=== PATIENT | female | born 1965 | race African-American/Black ===

== ENCOUNTER 2022-10-08 16:55 | Inpatient (IN) | payer MEDICAID, OTHER ==
[~2022-10-08] VITALS: Ht 170.2 cm; Wt 120.7 kg
[2022-10-08 17:38] LABS: BASOPHILS % 1.5 % (0.0-2.0); EOSINOPHILS % 1.7 % (0.0-5.0); HEMATOCRIT. 38.9 % (36.0-48.0); HEMOGLOBIN. 12.5 g/dL (12.0-16.0); MEAN CORPUSCULAR HEMOGLOBIN 30.9 pg (28.0-32.0); MEAN CORPUSCULAR VOLUME 95.9 fL (81.0-99.0); MEAN PLATELET VOLUME 8.8 fl (7.4-10.4); NEUTROPHILS % 69.8 % (40.0-76.0); PLATELET 214 x1000/uL (130-400); RED BLOOD CELL COUNT 4.05 mill/uL (4.2-5.4); RED CELL DISTRIBUTION WIDTH 16.3 % (11.6-14.6)
[2022-10-08 17:41] LABS: BG BASE EXCESS 3.1 mmol/L (-2.0-2.0); BG DEOXYHEMOGLOBIN 0.3 % (0.0-5.0); BG HCO3 ACT 30.1 mmol/L (22.0-26.0); BG METHEMOGLOBIN 0.5 % (0.0-1.5); BG OXYGEN SATURATION 99.7 % (92.0-98.5); BG OXYHEMOGLOBIN 97.2 % (94.0-97.0); BG PCO2 56.8 mmHg (35.0-45.0); BG PH 7.342 (7.350-7.450); BG PO2 433.2 mmHg (75.0-100.0); BG SAMPLE SITE RIGHT RADIAL; BG TOTAL HEMOGLOBIN 13.2 g/dL (12.0-18.0); BG VENT MODE MASK - BIPAP
[2022-10-08 17:45] LABS: CHLORIDE 106 mEq/L (98-107)
[2022-10-08] MEDS ORDERED: ASPIRIN 81MG TABLET PO ONE (17:45)
[2022-10-08] MEDS ORDERED: FUROSEMIDE 40MG/4ML VIAL IV ONE (17:45)
[2022-10-08] MEDS ORDERED: NITROGLYCERIN OINT 1GM/INCH UDPKT TD ONE (17:45)
[2022-10-08] MEDS ORDERED: NITROGLYCERIN 50MG PREMIX 250 ML IV ONE (19:15)
[2022-10-08] MEDS ORDERED: FUROSEMIDE 40MG/4ML VIAL IVP ONE (19:15)
[2022-10-08] MEDS: NITROGLYCERIN 0.4MG TABLET SL SL PRN ×2 (19:16→19:25)
[2022-10-08] MEDS ORDERED: FUROSEMIDE 40MG/4ML VIAL IV SCH (22:15)
[2022-10-08] MEDS: GUAIFENESIN 600MG ER TABLET PO SCH (22:57)
[2022-10-08] MEDS: HYDRALAZINE 20MG/ML VIAL IV PRN (22:59)
[2022-10-08] MEDS ORDERED: LORAZEPAM 1MG TABLET PO PRN (23:45)
[2022-10-08] MEDS ORDERED: CLONIDINE 0.2MG TABLET PO PRN (23:45)
[2022-10-09] VITALS (28 sets, daily range): BP systolic 130–228; BP diastolic 59–106
[2022-10-09] MEDS: HYDRALAZINE 20MG/ML VIAL IV PRN (03:29)
[2022-10-09] MEDS ORDERED: LORAZEPAM 2MG/ML CPJ IV PRN (04:15)
[2022-10-09] MEDS: NITROGLYCERIN 50 MG PREMIX 250 ML IV PRN ×2 (04:48→20:34)
[2022-10-09] MEDS: GUAIFENESIN 600MG ER TABLET PO SCH ×2 (09:00→17:00)
[2022-10-09] MEDS: FUROSEMIDE 40MG/4ML VIAL IV SCH ×2 (09:00→20:33)
[2022-10-09] MEDS: AMLODIPINE 10MG TABLET PO SCH (10:15)
[2022-10-09] MEDS ORDERED: ONDANSETRON HCL 4MG/2ML INJ IV PRN (10:15)
[2022-10-09 10:48] LABS: BG BASE EXCESS 4.2 mmol/L (-2.0-2.0); BG CARBOXYHEMOGLOBIN 0.6 % (0.5-1.5); BG DEOXYHEMOGLOBIN 0.7 % (0.0-5.0); BG FRACTION INSPIRED OXYGEN 75; BG HCO3 ACT 38.8 mmol/L (22.0-26.0); BG METHEMOGLOBIN 0.7 % (0.0-1.5); BG OXYGEN SATURATION 99.3 % (92.0-98.5); BG PCO2 134.3 mmHg (35.0-45.0); BG PH 7.079 (7.350-7.450); BG PO2 213.1 mmHg (75.0-100.0); BG SAMPLE SITE RIGHT RADIAL; BG TOTAL HEMOGLOBIN 13.8 g/dL (12.0-18.0); BG TOTAL RESPIRATORY RATE 25 b/min; BG VENT MODE MASK - BIPAP
[2022-10-09] MEDS ORDERED: FLUMAZENIL 0.1 MG/ML 5ML VIAL IV NR (11:00)
[2022-10-09] MEDS: IPRATROPIUM/ALBUTEROL 0.5-3(2.5)MG/3ML NEB HHN SCH ×2 (11:41→17:11)
[2022-10-09 11:47] LABS: BG BASE EXCESS 3.9 mmol/L (-2.0-2.0); BG CARBOXYHEMOGLOBIN 0.8 % (0.5-1.5); BG DEOXYHEMOGLOBIN 2.6 % (0.0-5.0); BG FRACTION INSPIRED OXYGEN 50; BG HCO3 ACT 37.7 mmol/L (22.0-26.0); BG METHEMOGLOBIN 0.7 % (0.0-1.5); BG OXYGEN SATURATION 97.4 % (92.0-98.5); BG OXYHEMOGLOBIN 95.9 % (94.0-97.0); BG PCO2 124.3 mmHg (35.0-45.0); BG PO2 106.4 mmHg (75.0-100.0); BG SAMPLE SITE RIGHT RADIAL; BG TOTAL HEMOGLOBIN 13.6 g/dL (12.0-18.0); BG TOTAL RESPIRATORY RATE 29 b/min; BG VENT MODE MASK - BIPAP
[2022-10-09] MEDS: METHYLPREDNISOLONE SOD SUCC 40 MG/ML VIAL IV SCH ×2 (12:10→20:33)
[2022-10-09 14:18] LABS: BG BASE EXCESS -0.7 mmol/L (-2.0-2.0); BG CARBOXYHEMOGLOBIN 1.1 % (0.5-1.5); BG DEOXYHEMOGLOBIN 5.2 % (0.0-5.0); BG FRACTION INSPIRED OXYGEN 50; BG HCO3 ACT 30.9 mmol/L (22.0-26.0); BG METHEMOGLOBIN 0.5 % (0.0-1.5); BG OXYGEN SATURATION 94.7 % (92.0-98.5); BG OXYHEMOGLOBIN 93.2 % (94.0-97.0); BG PCO2 91.7 mmHg (35.0-45.0); BG PH 7.145 (7.350-7.450); BG PO2 81.7 mmHg (75.0-100.0); BG SAMPLE SITE RIGHT RADIAL; BG TOTAL HEMOGLOBIN 13.6 g/dL (12.0-18.0); BG TOTAL RESPIRATORY RATE 28 b/min; BG VENT MODE MASK - BIPAP
[2022-10-09] MEDS ORDERED: HYDRALAZINE HCL 100MG TABLET PO NR (17:15)
[2022-10-09] MEDS: ALBUTEROL (0.083%) 2.5MG/3ML NEB HHN SCH (20:30)
[2022-10-09] MEDS: IPRATROPIUM BROMIDE (0.02%) 0.5MG/2.5ML NEB HHN SCH (20:31)
[2022-10-09] MEDS: HYDRALAZINE HCL 100MG TABLET PO SCH ×2 (22:00→23:11)
[2022-10-10] VITALS (44 sets, daily range): BP systolic 118–175; BP diastolic 52–99
[2022-10-10] MEDS: IPRATROPIUM BROMIDE (0.02%) 0.5MG/2.5ML NEB HHN SCH ×6 (01:04→22:01)
[2022-10-10] MEDS: ALBUTEROL (0.083%) 2.5MG/3ML NEB HHN SCH ×6 (01:04→22:01)
[2022-10-10] MEDS: METHYLPREDNISOLONE SOD SUCC 40 MG/ML VIAL IV SCH ×3 (04:14→20:37)
[2022-10-10] MEDS: NITROGLYCERIN 50 MG PREMIX 250 ML IV PRN (05:08)
[2022-10-10 05:51] LABS: BASOPHILS % 0.3 % (0.0-2.0); HEMATOCRIT. 37.1 % (36.0-48.0); HEMOGLOBIN. 11.7 g/dL (12.0-16.0); LYMPHOCYTES % 17.6 % (20.0-50.0); MEAN CORPUSCULAR HEMOGLOBIN 30.9 pg (28.0-32.0); MEAN CORPUSCULAR VOLUME 98.2 fL (81.0-99.0); MEAN PLATELET VOLUME 8.9 fl (7.4-10.4); MONOCYTES % 9.5 % (2.0-8.0); NEUTROPHILS % 72.6 % (40.0-76.0); PLATELET 214 x1000/uL (130-400); RED BLOOD CELL COUNT 3.78 mill/uL (4.2-5.4); RED CELL DISTRIBUTION WIDTH 16.5 % (11.6-14.6)
[2022-10-10 05:56] LABS: CHLORIDE 99 mEq/L (98-107)
[2022-10-10 06:18] LABS: HDL CHOLESTEROL 61 mg/dL (40-59); LDL CHOLESTEROL 105 mg/dL (5-100); T4 FREE 0.94 ng/dL (0.76-1.46)
[2022-10-10] MEDS: HYDRALAZINE HCL 100MG TABLET PO SCH ×3 (06:34→21:11)
[2022-10-10 08:34] LABS: BG BASE EXCESS -0.8 mmol/L (-2.0-2.0); BG CARBOXYHEMOGLOBIN 0.3 % (0.5-1.5); BG DEOXYHEMOGLOBIN 1.7 % (0.0-5.0); BG FRACTION INSPIRED OXYGEN 50; BG HCO3 ACT 27.1 mmol/L (22.0-26.0); BG METHEMOGLOBIN 0.1 % (0.0-1.5); BG OXYGEN SATURATION 98.3 % (92.0-98.5); BG OXYHEMOGLOBIN 97.9 % (94.0-97.0); BG PCO2 60.6 mmHg (35.0-45.0); BG PH 7.269 (7.350-7.450); BG PO2 124.5 mmHg (75.0-100.0); BG TOTAL HEMOGLOBIN 12.1 g/dL (12.0-18.0); BG TOTAL RESPIRATORY RATE 28 b/min; BG VENT MODE MASK - BIPAP
[2022-10-10] MEDS ORDERED: SODIUM CHLORIDE 0.9% 1,000 ML IV SCH (09:15)
[2022-10-10] MEDS: FUROSEMIDE 40MG/4ML VIAL IV SCH ×2 (09:54→21:11)
[2022-10-10] MEDS: GUAIFENESIN 600MG ER TABLET PO SCH ×2 (09:54→17:00)
[2022-10-10] MEDS: AMLODIPINE 10MG TABLET PO SCH (09:55)
[2022-10-10] MEDS: NICOTINE 14MG PATCH TD SCH (10:00)
[2022-10-10] MEDS ORDERED: ACETYLCYSTEINE 100MG/ML 10% VIAL 4ML INH SCH (12:00)
[2022-10-10] MEDS ORDERED: ACETYLCYSTEINE 200MG/ML 20% VIAL 4ML INH SCH (17:31)
[2022-10-11] VITALS (31 sets, daily range): BP systolic 140–182; BP diastolic 63–96
[2022-10-11] MEDS: ACETAMINOPHEN 325MG TABLET PO PRN ×2 (00:20→06:20)
[2022-10-11] MEDS: ALBUTEROL (0.083%) 2.5MG/3ML NEB HHN SCH ×6 (00:44→20:41)
[2022-10-11] MEDS: IPRATROPIUM BROMIDE (0.02%) 0.5MG/2.5ML NEB HHN SCH ×6 (00:44→20:41)
[2022-10-11] MEDS: CLONIDINE 0.1MG TABLET PO PRN (02:10)
[2022-10-11] MEDS: NITROGLYCERIN 50 MG PREMIX 250 ML IV PRN (03:28)
[2022-10-11 05:22] LABS: CHLORIDE 99 mEq/L (98-107)
[2022-10-11 05:27] LABS: BASOPHILS % 0.2 % (0.0-2.0); HEMATOCRIT. 38.4 % (36.0-48.0); HEMOGLOBIN. 12.4 g/dL (12.0-16.0); LYMPHOCYTES % 12.2 % (20.0-50.0); MEAN CORPUSCULAR VOLUME 95.9 fL (81.0-99.0); MEAN PLATELET VOLUME 8.7 fl (7.4-10.4); MONOCYTES % 4.9 % (2.0-8.0); NEUTROPHILS % 82.7 % (40.0-76.0); PLATELET 222 x1000/uL (130-400)
[2022-10-11] MEDS: HYDRALAZINE HCL 100MG TABLET PO SCH ×3 (06:04→21:36)
[2022-10-11 08:34] LABS: *AMPHETAMINES SCREEN URINE NEGATIVE (NEGATIVE); *BARBITURATES SCREEN URINE NEGATIVE (NEGATIVE); *BENZODIAZEPINES SCREEN URINE NEGATIVE (NEGATIVE); *COCAINE SCREEN URINE NEGATIVE (NEGATIVE); CANNABINOID URINE SCREEN PRESUMTIVE POSITIVE (NEGATIVE); METHADONE URINE SCREEN NEGATIVE (NEGATIVE); OPIATES URINE SCREEN NEGATIVE (NEGATIVE); PHENCYCLIDINE URINE SCREEN NEGATIVE (NEGATIVE)
[2022-10-11] MEDS: PREDNISONE 20MG TABLET PO SCH ×2 (08:58→16:12)
[2022-10-11] MEDS: FUROSEMIDE 40MG/4ML VIAL IV SCH (08:58)
[2022-10-11] MEDS: AMLODIPINE 10MG TABLET PO SCH (08:58)
[2022-10-11] MEDS: GUAIFENESIN 600MG ER TABLET PO SCH ×2 (08:59→16:12)
[2022-10-11] MEDS: PANTOPRAZOLE 40MG DR TABLET PO SCH (08:59)
[2022-10-11] MEDS: NICOTINE 14MG PATCH TD SCH (08:59)
[2022-10-11 09:27] LABS: BG BASE EXCESS 3.4 mmol/L (-2.0-2.0); BG CARBOXYHEMOGLOBIN 0.5 % (0.5-1.5); BG DEOXYHEMOGLOBIN 3.1 % (0.0-5.0); BG HCO3 ACT 31.6 mmol/L (22.0-26.0); BG METHEMOGLOBIN 0.2 % (0.0-1.5); BG OXYGEN SATURATION 96.9 % (92.0-98.5); BG OXYHEMOGLOBIN 96.2 % (94.0-97.0); BG PCO2 65.1 mmHg (35.0-45.0); BG PH 7.304 (7.350-7.450); BG PO2 93.2 mmHg (75.0-100.0); BG SAMPLE SITE RIGHT RADIAL; BG TOTAL HEMOGLOBIN 13.6 g/dL (12.0-18.0); BG VENT MODE MASK - SIMPLE
[2022-10-11] MEDS: SODIUM CHLORIDE 0.9% 1,000 ML IV SCH ×2 (11:09→23:50)
[2022-10-11] MEDS: CLONIDINE 0.1MG TABLET PO SCH ×2 (11:09→16:13)
[2022-10-11] MEDS ORDERED: BISACODYL 5MG TABLET PO NR (11:15)
[2022-10-11] MEDS ORDERED: CLONIDINE 0.1MG TABLET PO NR (17:00)
[2022-10-11] MEDS ORDERED: NALOXONE HCL 0.4MG/ML VIAL IV PRN (17:15)
[2022-10-11] MEDS: HYDROCODONE/ACETAMINOPHEN 10/325MG TABLET PO PRN ×2 (17:16→21:57)
[2022-10-12] VITALS (18 sets, daily range): BP systolic 136–183; BP diastolic 77–106
[2022-10-12] MEDS: ALBUTEROL (0.083%) 2.5MG/3ML NEB HHN SCH ×6 (00:15→20:53)
[2022-10-12] MEDS: IPRATROPIUM BROMIDE (0.02%) 0.5MG/2.5ML NEB HHN SCH ×6 (00:15→20:53)
[2022-10-12] MEDS: HYDROCODONE/ACETAMINOPHEN 10/325MG TABLET PO PRN ×2 (03:11→14:57)
[2022-10-12] MEDS: CLONIDINE 0.1MG TABLET PO PRN ×2 (03:12→10:29)
[2022-10-12] MEDS: HYDRALAZINE HCL 100MG TABLET PO SCH ×3 (05:31→21:16)
[2022-10-12 07:03] LABS: BASOPHILS % 0.5 % (0.0-2.0); HEMATOCRIT. 37.5 % (36.0-48.0); HEMOGLOBIN. 12.2 g/dL (12.0-16.0); LYMPHOCYTES % 11.9 % (20.0-50.0); MEAN CORPUSCULAR HEMOGLOBIN 31.1 pg (28.0-32.0); MEAN CORPUSCULAR VOLUME 95.6 fL (81.0-99.0); MEAN PLATELET VOLUME 8.5 fl (7.4-10.4); MONOCYTES % 7.4 % (2.0-8.0); NEUTROPHILS % 80.2 % (40.0-76.0); PLATELET 233 x1000/uL (130-400); RED BLOOD CELL COUNT 3.92 mill/uL (4.2-5.4); RED CELL DISTRIBUTION WIDTH 16.1 % (11.6-14.6)
[2022-10-12 07:12] LABS: CHLORIDE 100 mEq/L (98-107)
[2022-10-12] MEDS: NICOTINE 14MG PATCH TD SCH (09:00)
[2022-10-12] MEDS: PREDNISONE 20MG TABLET PO SCH ×2 (09:09→16:51)
[2022-10-12] MEDS: AMLODIPINE 10MG TABLET PO SCH (09:10)
[2022-10-12] MEDS: GUAIFENESIN 600MG ER TABLET PO SCH ×2 (09:10→16:51)
[2022-10-12] MEDS: PANTOPRAZOLE 40MG DR TABLET PO SCH (09:10)
[2022-10-12] MEDS: CLONIDINE 0.1MG TABLET PO SCH ×2 (09:10→16:51)
[2022-10-12 10:09] LABS: BG BASE EXCESS 2.1 mmol/L (-2.0-2.0); BG CARBOXYHEMOGLOBIN 1.2 % (0.5-1.5); BG DEOXYHEMOGLOBIN 4.2 % (0.0-5.0); BG FRACTION INSPIRED OXYGEN 36; BG HCO3 ACT 28.5 mmol/L (22.0-26.0); BG METHEMOGLOBIN 0.2 % (0.0-1.5); BG OXYGEN SATURATION 95.7 % (92.0-98.5); BG OXYHEMOGLOBIN 94.4 % (94.0-97.0); BG PH 7.357 (7.350-7.450); BG PO2 80.6 mmHg (75.0-100.0); BG SAMPLE SITE RIGHT RADIAL; BG TOTAL HEMOGLOBIN 12.9 g/dL (12.0-18.0); BG VENT MODE NASAL CANNULA
[2022-10-12] MEDS: CEFTRIAXONE 1,000 MG in DEXTROSE 5% WATER 50 ML IV SCH (10:29)
[2022-10-12 11:55] LABS: BG BASE EXCESS 4.3 mmol/L (-2.0-2.0); BG CARBOXYHEMOGLOBIN 0.2 % (0.5-1.5); BG DEOXYHEMOGLOBIN 15.3 % (0.0-5.0); BG FRACTION INSPIRED OXYGEN 21; BG HCO3 ACT 30.9 mmol/L (22.0-26.0); BG METHEMOGLOBIN 0.1 % (0.0-1.5); BG OXYGEN SATURATION 84.7 % (92.0-98.5); BG OXYHEMOGLOBIN 84.4 % (94.0-97.0); BG PCO2 54.7 mmHg (35.0-45.0); BG PO2 48.7 mmHg (75.0-100.0); BG SAMPLE SITE RIGHT RADIAL; BG TOTAL HEMOGLOBIN 13.6 g/dL (12.0-18.0); BG VENT MODE ROOM AIR
[2022-10-13 00:30] VITALS: BP 182/96
[2022-10-13] MEDS: IPRATROPIUM BROMIDE (0.02%) 0.5MG/2.5ML NEB HHN SCH ×4 (00:44→11:43)
[2022-10-13] MEDS: ALBUTEROL (0.083%) 2.5MG/3ML NEB HHN SCH ×3 (00:44→09:07)
[2022-10-13] MEDS: CLONIDINE 0.1MG TABLET PO PRN (00:59)
[2022-10-13] MEDS: HYDROCODONE/ACETAMINOPHEN 10/325MG TABLET PO PRN ×3 (01:01→09:44)
[2022-10-13 04:20] VITALS: BP 183/97
[2022-10-13] MEDS: HYDRALAZINE HCL 100MG TABLET PO SCH ×2 (04:46→14:23)
[2022-10-13 05:25] LABS: BASOPHILS % 0.6 % (0.0-2.0); HEMATOCRIT. 38.8 % (36.0-48.0); HEMOGLOBIN. 12.6 g/dL (12.0-16.0); LYMPHOCYTES % 10.9 % (20.0-50.0); MEAN CORPUSCULAR HEMOGLOBIN 30.8 pg (28.0-32.0); MEAN CORPUSCULAR VOLUME 94.9 fL (81.0-99.0); MONOCYTES % 6.5 % (2.0-8.0); PLATELET 263 x1000/uL (130-400); RED BLOOD CELL COUNT 4.09 mill/uL (4.2-5.4); RED CELL DISTRIBUTION WIDTH 16.2 % (11.6-14.6)
[2022-10-13 05:35] LABS: CHLORIDE 101 mEq/L (98-107)
[2022-10-13 08:00] VITALS: BP 153/87
[2022-10-13] MEDS: AMLODIPINE 10MG TABLET PO SCH (08:50)
[2022-10-13] MEDS: PREDNISONE 20MG TABLET PO SCH ×2 (08:51→17:00)
[2022-10-13] MEDS: GUAIFENESIN 600MG ER TABLET PO SCH ×2 (08:51→17:00)
[2022-10-13] MEDS: CLONIDINE 0.1MG TABLET PO SCH ×2 (08:51→12:53)
[2022-10-13] MEDS: NICOTINE 14MG PATCH TD SCH (09:00)
[2022-10-13] MEDS ORDERED: FAMOTIDINE 20MG TABLET PO SCH (09:00)
[2022-10-13] MEDS: CEFTRIAXONE 1,000 MG in DEXTROSE 5% WATER 50 ML IV SCH (09:41)
[2022-10-13] MEDS ORDERED: SODIUM POLYSTYRENE SULFONATE 15 G/60 ML BOT PO NR (09:45)
[2022-10-13 12:00] VITALS: BP 176/98
[2022-10-13 15:19] VITALS: BP 163/89
[2022-10-13 15:24] VITALS: BP 163/89
[2022-10-13] MEDS ORDERED: ALBU18HF2 IH (19:05)
[2022-10-13] MEDS ORDERED: FLUT1DIS3 INH (19:05)
[2022-10-13] MEDS ORDERED: LOSARTAN POTASSIUM 50 MG TABLET PO SCH (21:00)
== END 2022-10-13 17:00 | disposition home or self-care (01) | DRG 133 ==
LOC: ER 16:55 → EDBEDREQSVC 19:16 → EDBEDREQ 19:16 → EDBEDREQTM 19:16 → EDBEDREQ 19:17 → MICUSO 21:02 → EDBEDREQ 21:26 → EDBEDREQTM 21:26 → CVICU 10-09 17:15 → 7EST 10-12 13:02
PROVIDERS: ADMIT Internal Medicine; ATTEND Internal Medicine
PROC: 5A09457 Assistance with Respiratory Ventilation, 24-96 Consecutive Hours, Continuous Positive Airway Pressure (ICD-10-PCS; principal; 2022-10-08)
PROC: 5A09357 Assistance with Respiratory Ventilation, Less than 24 Consecutive Hours, Continuous Positive Airway Pressure (ICD-10-PCS; 2022-10-10)
PROC: 5A0935A Assistance with Respiratory Ventilation, Less than 24 Consecutive Hours, High Flow/Velocity Cannula (ICD-10-PCS; 2022-10-10)
PROC: 5A09357 Assistance with Respiratory Ventilation, Less than 24 Consecutive Hours, Continuous Positive Airway Pressure (ICD-10-PCS; 2022-10-11)
PROC: 5A09357 Assistance with Respiratory Ventilation, Less than 24 Consecutive Hours, Continuous Positive Airway Pressure (ICD-10-PCS; 2022-10-12)
DX: J96.02 Acute respiratory failure with hypercapnia (principal); N17.0 Acute kidney failure with tubular necrosis; G92.8 Other toxic encephalopathy; I50.33 Acute on chronic diastolic (congestive) heart failure; J18.9 Pneumonia, unspecified organism; E87.4 Mixed disorder of acid-base balance; I11.0 Hypertensive heart disease with heart failure; E87.29 Other acidosis; E86.0 Dehydration; E66.2 Morbid (severe) obesity with alveolar hypoventilation; Z99.81 Dependence on supplemental oxygen; J44.1 Chronic obstructive pulmonary disease with (acute) exacerbation; I16.1 Hypertensive emergency; Z20.822 Contact with and (suspected) exposure to COVID-19; G89.29 Other chronic pain; I34.81 Nonrheumatic mitral (valve) annulus calcification; E11.9 Type 2 diabetes mellitus without complications; E03.9 Hypothyroidism, unspecified; F41.9 Anxiety disorder, unspecified; F17.210 Nicotine dependence, cigarettes, uncomplicated; Z68.41 Body mass index [BMI] 40.0-44.9, adult; Z86.73 Personal history of transient ischemic attack (TIA), and cerebral infarction without residual deficits; Z79.899 Other long term (current) drug therapy
CPT/HCPCS: 36415; 36600; 71045; 80048; 80053; 80061; 80305; 82375; 82805; 83036; 83880; 84439; 84443; 84484; 85025; 85379; 87420; 87426; 87804; 93005; 93306; 93970; 94640; 94660; 97162; 97165; 99291; C1893; C9803; J0360; J0696; J1940; J2060; J2920; J3490; J7030; J7060; J7512; J7608; A4315

== ENCOUNTER 2024-08-14 23:47 | Emergency (ER) | payer MEDICAID ==
[~2024-08-14] VITALS: Ht 177.8 cm; Wt 120.0 kg
[~2024-08-14 23:47] MED LIST: ALBU18HF2 IH; FLUT1DIS3 INH
[2024-08-14 23:48] VITALS: O2SAT 99
[2024-08-14 23:55] VITALS: PULSE 51; RESP 17; O2SAT 100
[2024-08-15 00:17] LABS: CARBON DIOXIDE 28 mEq/L (21-32); CHLORIDE 106 mEq/L (98-107); POTASSIUM 5.6 mEq/L (3.5-5.1); SODIUM 138 mEq/L (136-145)
[2024-08-15 00:19] LABS: BASOPHILS % 1.4 % (0.0-2.0); EOSINOPHILS % 5.3 % (0.0-5.0); HEMATOCRIT. 44.3 % (36.0-48.0); HEMOGLOBIN. 14.8 g/dL (12.0-16.0); LYMPHOCYTES % 43.4 % (20.0-50.0); MEAN CORPUSCULAR HEMOGLOBIN 32.5 pg (28.0-32.0); MEAN CORPUSCULAR HGB CONC 33.5 g/dL (31.0-37.0); MEAN CORPUSCULAR VOLUME 97.1 fL (81.0-99.0); MEAN PLATELET VOLUME 9.1 fl (7.4-10.4); MONOCYTES % 6.9 % (2.0-8.0); PLATELET 315 x1000/uL (130-400); RED BLOOD CELL COUNT 4.56 mill/uL (4.2-5.4); RED CELL DISTRIBUTION WIDTH 16.1 % (11.6-14.6); WHITE BLOOD COUNT 7.6 x1000/uL (4.5-11.0)
[2024-08-15 00:23] LABS: CREATININE 1.8 mg/dL (0.6-1.0); GLUCOSE 137 mg/dL (70-105); UREA NITROGEN BLOOD 26 mg/dL (9-23)
[2024-08-15 00:24] LABS: PROTHROMBIN TIME 11.1 sec (9.6-11.0)
[2024-08-15 00:25] LABS: TROPONIN I HIGH SENSITIVITY 32 ng/L (3.0-34)
[2024-08-15 00:28] LABS: ETHANOL BLOOD < 10 mg/dL (<10)
[2024-08-15] MEDS: PROPOFOL 10MG/ML 100ML 100 ML IV ONE (00:35)
[2024-08-15] MEDS: SUCCINYLCHOLINE CHLORIDE 200MG/10ML IV ONE (00:36)
[2024-08-15] MEDS: ETOMIDATE 2MG/ML 10ML VIAL IV ONE (00:36)
[2024-08-15] MEDS: NICARDIPINE 40MG/200ML PREMIX 200 ML IV PRN (00:56)
[2024-08-15] MEDS: MANNITOL 20% (20GM/100ML) BAG 500ML PREMIX IV NR (02:32)
[2024-08-15] MEDS: LEVETIRACETAM 500MG PREMIX 100 ML IV ONE (02:32)
[2024-08-15 02:40] VITALS: BP 138/81; TEMP 36.55848
[2024-08-15] MEDS ORDERED: PROPOFOL 10MG/ML 100ML 100 ML IV NR (03:09)
[2024-08-15] MEDS ORDERED: PROPOFOL 10MG/ML 100ML 100 ML IV ONE (03:15)
[2024-08-15 03:30] VITALS: PULSE 50; RESP 17; O2SAT 100
[2024-08-15] MEDS ORDERED: IOHEXOL-350 100 ML BOTTLE ONE (04:43)
== END 2024-08-15 03:16 | disposition short-term general hospital (02) ==
LOC: ER 23:47
DX: I60.9 Nontraumatic subarachnoid hemorrhage, unspecified (principal); R41.82 Altered mental status, unspecified; I11.0 Hypertensive heart disease with heart failure; I50.9 Heart failure, unspecified; F12.10 Cannabis abuse, uncomplicated; Z86.73 Personal history of transient ischemic attack (TIA), and cerebral infarction without residual deficits; Z79.51 Long term (current) use of inhaled steroids
CPT/HCPCS: 36415; 71045; 31500; 93005; 36556; 99291; 80048; 80320; 83880; 85025; 85610; 85730; 84484; 70496; 70498; 70450; 96367; 96365; 96375; Z7610 ×6; Q9967; J1953; J2704; 94002; G0480